=== PATIENT | female | born 1995 | race Caucasian/White ===

== ENCOUNTER 2021-01-31 14:36 | Emergency (ER) | payer OTHER ==
[2021-01-31 15:03] LABS: Absolute Neutrophil Ct (ANC) 9.54 (1.4-6.9); BASOPHIL % 0.1 % (0.0-0.4); Basophil (Absolute #) 0.02 (0-0.4); Eosinophil % 0.9 % (0.00-5.0); Eosinophil (Absolute #) 0.12 (0-0.5); Hematocrit 33.2 % (35-47); Lymphocyte (Absolute #) 2.78 (1.0-4.6); Lymphocytes % 20.6 % (24.0-44.0); Mean Cell Volume 89.5 fl (78-100); Mean Corpuscular Hemoglobin 29.6 pg (26-32); Mean Corpuscular Hgb Concent. 33.1 g/dl (32-36); Mean Platelet Volume 10.8 fl (7.5-11.0); Monocyte (Absolute #) 1.06 (0.0-1.3); Monocytes % 7.8 % (0.0-12.0); Neutrophil % 70.6 % (36.0-66.0); Platelet Count 215 K/mm3 (150-450); Red Blood Count 3.71 M/mm3 (4.1-5.4); Red Cell Distribution Width 12.7 % (11.5-14.0); White Blood Count 13.5 K/mm3 (4.0-10.5)
--- NOTE | 2021-01-31 15:03 | ERPHSYRPT ---
- History of Present Illness Time Seen by Provider: 01/31/21 14:40 Historian: patient Exam Limitations: no limitations Patient Subjective Stated Complaint: CP x 2 days Triage Nursing Assessment: pt to ED c/o CP x 2 days. dull in center of chest sonya t radiates to back. is 27 weeks . called OBGYN for CP sx today and was referred to ED for evaluation. no cardiac hx. heart sounds clear, lungs clear and equal bilaterally. rates 7/10. Physician History: Patient is a 25-year-old female presents to our ED as a referral from her OB for evaluation of of substernal chest pain. Chest pain has been ongoing for approximately 2 days. Chest pain tends to radiate to her back. Pain described as a dull ache. Patient denies a cardiac history. Pain rated 7 out of 10. No specific worsening or improving factors. Patient denies any symptomology regarding her . No vaginal discharge. No pelvic cramping. Symptoms are mild to moderate in intensity. No specific worsening improving factors. Patient voices no other complaints or concerns at this time. Patient admits that she is a current smoker. Timing/Duration: day(s) (2 days) Activities at Onset: none Quality: aching, dullness Location: substernal Chest Pain Radiation: back Severity of Pain-Max: moderate Severity of Pain-Current: mild Modifying Factors: Improves With: nothing Associated Symptoms: denies symptoms, No nausea, No vomiting, No palpitations, No cough, No diaphoresis, No fever, No weakness, No swelling/lump in chest, No rash, No dizziness Prior Chest Pain/Cardiac Workup: no prior chest pain Nitro Today/Relief: no nitro taken today Aspirin Treatment Today: no aspirin today Allergies/Adverse Reactions: codeine Allergy (Verified 01/31/21 14:50) Hives morphine Allergy (Verified 01/31/21 14:50) Hives promethazine HCl [From Phenergan] Allergy (Verified 01/31/21 14:50) Hives Home Medications: Buspirone HCl [Buspar] 10 mg PO DAILY 01/31/21 [History] Famotidine [Zantac-360 (Famotidine)] 10 mg PO DAILY PRN PRN 01/31/21 [History] Hydroxyzine HCl 25 mg [Atarax 25 mg] 25 mg PO DAILY PRN PRN 01/31/21 [History] Ondansetron HCl [Zofran] 4 mg PO Q6H PRN 01/31/21 [History] Vits W-Ca,Fe,FA(<1Mg) [] 1 each PO DAILY 01/31/21 [History] Hx Tetanus, Diphtheria Vaccination/Date Given: Yes (up to date) Hx Influenza Vaccination/Date Given: No Hx Pneumococcal Vaccination/Date Given: No Immunizations Up to Date: No Travel Risk - International Travel Have you traveled outside of the country in past 3 weeks: No - Coronavirus Screening Are you exhibiting any of the following symptoms?: No Close contact with a COVID-19 positive Pt in past 14-21 Days: No - Vaccine Status Have you recieved a Covid-19 vaccination: No - Review of Systems Constitutional: No Symptoms, No Fever, No Chills Eyes: No Symptoms Ears, Nose, & Throat: No Symptoms Respiratory: No Symptoms, No Cough, No Dyspnea Cardiac: No Symptoms, No Chest Pain, No Edema, No Syncope Abdominal/Gastrointestinal: No Symptoms, No Abdominal Pain, No Nausea, No Vomi ting, No Diarrhea Genitourinary Symptoms: No Symptoms, No Dysuria Musculoskeletal: No Symptoms, No Back Pain, No Neck Pain Skin: No Symptoms, No Rash Neurological: No Symptoms, No Dizziness, No Focal Weakness, No Sensory Changes Psychological: No Symptoms Endocrine: No Symptoms Hematologic/Lymphatic: No Symptoms Immunological/Allergic: No Symptoms All Other Systems: Reviewed and Negative - Past Medical History Pertinent Past Medical History: Yes Neurological History: No Pertinent History ENT History: No Pertinent History Cardiac History: No Pertinent History Respiratory History: No Pertinent History Endocrine Medical History: Hypoglycemia, Hypothyroidism Musculoskeletal History: No Pertinent History GI Medical History: No Pertinent History History: Other Psycho-Social History: Depression Female Reproductive Disorders: No Pertinent History Other Medical History: KIDNEY DISEASE. HYPOGLCEMIIA - Past Surgical History Past Surgical History: Yes Neuro Surgical History: No Pertinent History Cardiac: No Pertinent History Respiratory: No Pertinent History Gastrointestinal: No Pertinent History Genitourinary: Other Musculoskeletal: Orthopedic Surgery Female Surgical History: No Pertinent History Other Surgical History: KIDNEY BIOPSY. TONSILECTOMY. WISDOM TEETH REMOVED. CYST REMOVED ON WRIST - Social History Smoking Status: Current every day smoker How long have you smoked: 3 Exposure to second hand smoke: Yes Drug Use: none Patient Lives Alone: No - Female History Hx Now: Yes - Nursing Vital Signs Nursing Vital Signs: Initial Vital Signs Temperature 98.0 F 01/31/21 14:38 Pulse Rate 114 H 01/31/21 14:38 Respiratory Rate 18 01/31/21 14:38 Blood Pressure 117/79 01/31/21 14:38 O2 Sat by Pulse Oximetry 98 01/31/21 14:38 Pain Scale Pain Intensity 0 - Physical Exam General Appearance: no apparent distress, alert Eye Exam: PERRL/EOMI, eyes nml inspection Ears, Nose, Throat Exam: normal ENT inspection, TMs normal, pharynx normal, moist mucous membranes Neck Exam: normal inspection, non-tender, supple, full range of motion Respiratory Exam: normal breath sounds, lungs clear, airway intact, No respiratory distress Cardiovascular Exam: regular rate/rhythm, normal heart sounds, normal peripheral pulses, other (Chest pain reproduced with movement palpation and stretching of her chest.) Gastrointestinal/Abdomen Exam: soft, normal bowel sounds, other (Gravid abdomen heart tones are 160.), No tenderness, No mass Back Exam: normal inspection, No CVA tenderness, No vertebral tenderness Extremity Exam: normal inspection, normal range of motion Neurologic Exam: alert, oriented x 3, cooperative, normal mood/affect, sensation nml, No motor deficits Skin Exam: normal color, warm, dry Lymphatic Exam: adenopathy SpO2 Interpretation: normal SpO2: 98 O2 Delivery: Room Air - Course Nursing assessment & vital signs reviewed: Yes EKG Interpreted by Me: RATE ([id number]), Sinus Tach, NORMAL AXIS, NORMAL INTERVALS - Radiology Exams Chest X-ray Interpretation: Teleradiologist Report (Portable chest demonstrates normal heart lungs and bony thorax) - Radiology Ultrasound Exam Venous Lower Extremity Ultrasound: discussed w/radiologist (Per wallpaper printer helper ultrasound DVT negative bilateral lower extremity.) Ordered Tests: Active Orders 24 hr Category Date Time Status Ross Furnace Operator STAT Care 01/31/21 14:51 Active EKG-ER Only STAT Care 01/31/21 14:50 Active IV Insertion STAT Care 01/31/21 14:50 Active Pulse Oximetry (ED) STAT Care 01/31/21 14:50 Active CHEST 1 VIEW (PORTABLE) Stat Exams 01/31/21 14:51 Completed VENOUS BILATERAL EXTREMITY [US] Stat Exams 01/31/21 14:49 Completed CBC W DIFF Stat Lab 01/31/21 14:45 Completed CMP Stat Lab 01/31/21 14:45 Completed TROPONIN Q3H Lab 01/31/21 14:45 Completed TROPONIN Q3H Lab 01/31/21 16:49 Completed TROPONIN Q3H Lab 01/31/21 21:00 Ordered TROPONIN Q3H Lab 02/01/21 00:00 Ordered TROPONIN Q3H Lab 02/01/21 03:00 Ordered Urine Triage Profile Stat Lab 01/31/21 14:59 Completed Lab/Rad Data: Laboratory Result Diagrams 01/31/21 14:45 01/31/21 14:45 Laboratory Results 01/31/21 01/31/21 01/31/21 Range/Units 16:49 14:59 14:45 WBC (4.0-10.5) K/mm3 RBC (4.1-5.4) M/mm3 Hgb (12.0-16.0) gm/dl Hct (35-47) % MCV (78-100) fl MCH (26-32) pg MCHC (32-36) g/dl RDW (11.5-14.0) % Plt Count (150-450) K/mm3 MPV (7.5-11.0) fl Gran % (36.0-66.0) % Eos # (Auto) (0-0.5) Absolute Lymphs (auto) (1.0-4.6) Absolute Monos (auto) (0.0-1.3) Lymphocytes % (24.0-44.0) % Monocytes % (0.0-12.0) % Eosinophils % (0.00-5.0) % Basophils % (0.0-0.4) % Absolute Granulocytes (1.4-6.9) Basophils # (0-0.4) Sodium (137-145) mmol/L Potassium (3.5-5.1) mmol/L Chloride (98-107) mmol/L Carbon Dioxide (22-30) mmol/L Anion Gap (5-15) MEQ/L BUN (7-17) mg/dL Creatinine (0.52-1.04) mg/dL Estimated GFR ML/MIN Glucose (74-106) mg/dL Calcium (8.4-10.2) mg/dL Total Bilirubin (0.2-1.3) mg/dL AST (14-36) U/L ALT (0-35) U/L Alkaline Phosphatase (38-126) U/L Troponin I < 0.012 < 0.012 (0.000-0.034) ng/mL Serum Total Protein (6.3-8.2) g/dL Albumin (3.5-5.0) g/dL Urine Opiates Level NEGATIVE (NEGATIVE) Ur Methadone NEGATIVE (NEGATIVE) Urine Barbiturates NEGATIVE (NEGATIVE) Ur Phencyclidine (PCP) NEGATIVE (NEGATIVE) Urine Amphetamine NEGATIVE (NEGATIVE) U Benzodiazepine Level NEGATIVE (NEGATIVE) Urine Cocaine NEGATIVE (NEGATIVE) Urine Marijuana (THC) NEGATIVE (NEGATIVE) 01/31/21 01/31/21 Range/Units 14:45 14:45 WBC 13.5 H (4.0-10.5) K/mm3 RBC 3.71 L (4.1-5.4) M/mm3 Hgb 11.0 L (12.0-16.0) gm/dl Hct 33.2 L (35-47) % MCV 89.5 (78-100) fl MCH 29.6 (26-32) pg MCHC 33.1 (32-36) g/dl RDW 12.7 (11.5-14.0) % Plt Count 215 (150-450) K/mm3 MPV 10.8 (7.5-11.0) fl Gran % 70.6 H (36.0-66.0) % Eos # (Auto) 0.12 (0-0.5) Absolute Lymphs (auto) 2.78 (1.0-4.6) Absolute Monos (auto) 1.06 (0.0-1.3) Lymphocytes % 20.6 L (24.0-44.0) % Monocytes % 7.8 (0.0-12.0) % Eosinophils % 0.9 (0.00-5.0) % Basophils % 0.1 (0.0-0.4) % Absolute Granulocytes 9.54 H (1.4-6.9) Basophils # 0.02 (0-0.4) Sodium 132 L (137-145) mmol/L Potassium 3.7 (3.5-5.1) mmol/L Chloride 103 (98-107) mmol/L Carbon Dioxide 21 L (22-30) mmol/L Anion Gap 11.1 (5-15) MEQ/L BUN 8 (7-17) mg/dL Creatinine 0.50 L (0.52-1.04) mg/dL Estimated GFR > 60.0 ML/MIN Glucose 108 H (74-106) mg/dL Calcium 8.8 (8.4-10.2) mg/dL Total Bilirubin 0.50 (0.2-1.3) mg/dL AST 17 (14-36) U/L ALT 15 (0-35) U/L Alkaline Phosphatase 72 (38-126) U/L Troponin I (0.000-0.034) ng/mL Serum Total Protein 6.2 L (6.3-8.2) g/dL Albumin 3.3 L (3.5-5.0) g/dL Urine Opiates Level (NEGATIVE) Ur Methadone (NEGATIVE) Urine Barbiturates (NEGATIVE) Ur Phencyclidine (PCP) (NEGATIVE) Urine Amphetamine (NEGATIVE) U Benzodiazepine Level (NEGATIVE) Urine Cocaine (NEGATIVE) Urine Marijuana (THC) (NEGATIVE) - Progress Progress: improved Air Movement: good Progress Note: Patient reassessed. No chest pain at rest. Chest pain occurs with palpation to anterior chest wall and stretching of her chest wall by extending her arms. Work-up negative. Troponin negative x2. Ultrasound bilateral lower extremities are negative for DVT. Vitals are normal. Patient not tachycardic or hypoxic. EKG is normal sinus rhythm. Chest x-ray negative fear acute pathology. Patient states she is ready for discharge. No indication for further work-up at this time. Case discussed with Dr. Ray, patient's referring OB. No further recommendations made at this time. Patient agrees to follow-up with her primary care doctor within 48 hours for reevaluation. She voices no other complaints or concerns at this time. Patient has no complaints or involvement of her pelvis vaginal area or any complaints regarding her . heart tones were 160. Portions of this note were created with voice recognition technology. There may be grammatical, spelling, punctuation or sound alike errors 01/31/21 18:00 Blood Culture(s) Obtained: No Antibiotics given: No Discussed with DrAlexsandra: Francine Will see patient in: office Counseled pt/family regarding: lab results, diagnosis, rad results - Departure Departure Disposition: Home Clinical Impression: Chest wall muscle strain, Chest pain Condition: Stable Critical Care Time: No Referrals: MICHELLE CURRIE, FILTERS ASSEMBLER [Primary Care Provider] - Follow up/PCP as directed Additional Instructions: Discharge/Care Plan WILBUR BATRES was seen on 01/31/21 in the Emergency Room. The patient was counseled regarding Diagnosis,Lab results, Imaging studies, need for follow up and when to return to the Emergency Room. Prescriptions given: Discharge Note I have spoken with the patient and/or caregivers. I have explained the patient's condition, diagnosis and treatment plan based on the information available to me at this time. I have answered the patient's and/or caregiver's questions and addressed any concerns. The patient and/or caregivers have as good understanding of the patient's diagnosis, condition and treatment plan as can be expected at this point. The vital signs have been stable. The patient's condition is stable and appropriate for discharge from the emergency department. The patient will pursue further outpatient evaluation with the primary care physician or other designated or consulting physician as outlined in the discharge instructions. The patient and/or caregivers are agreeable to this plan of care and follow-up instructions have been explained in detail. The patient and/or caregivers have received these instruction. The patient/and or caregivers are aware that any significant change in condition or worsening of symptoms should prompt an immediate return to this or the closest emergency department or call 911.
[2021-01-31 15:09] LABS: ALBUMIN 3.3 g/dL (3.5-5.0); ALKALINE PHOSPHATASE 72 U/L (38-126); ANION GAP 11.1 MEQ/L (5-15); BLOOD UREA NITROGEN 8 mg/dL (7-17); CHLORIDE 103 mmol/L (98-107); Calcium 8.8 mg/dL (8.4-10.2); Carbon Dioxide 21 mmol/L (22-30); EST GLOMERULAR FILTRATION RATE > 60.0 ML/MIN; Glucose 108 mg/dL (74-106); Potassium 3.7 mmol/L (3.5-5.1); SGOT/AST 17 U/L (14-36); SGPT/ALT 15 U/L (0-35); SODIUM 132 mmol/L (137-145); Total Protein 6.2 g/dL (6.3-8.2)
--- NOTE | 2021-01-31 15:13 | XRAY ---
Indication: Chest pain. 27 weeks . Comparison: None Portable chest demonstrates normal heart, lungs, and bony thorax.
[2021-01-31 15:35] LABS: Amphetamine,Urine NEGATIVE (NEGATIVE); Barbiturate,Urine NEGATIVE (NEGATIVE); Benzodiazepine,Urine NEGATIVE (NEGATIVE); Cocaine,Urine NEGATIVE (NEGATIVE); Methadone,Urine NEGATIVE (NEGATIVE); Opiate,Urine NEGATIVE (NEGATIVE); PCP,Urine NEGATIVE (NEGATIVE); THC,Urine NEGATIVE (NEGATIVE)
--- NOTE | 2021-01-31 16:25 | XRAY ---
Indication: Chest pain. 2-dimensional sonogram and color Doppler imaging of the major venous vessels of the left and right leg performed. Comparison: None No thrombus seen in the examined deep venous vessels of the left and right leg including greater saphenous vein. Veins demonstrate normal compressibility. Venous waveforms are normal with and without augmentation. Impression: Left and right legs negative for DVT.
== END 2021-01-31 18:10 | disposition home or self-care (01) ==
LOC: ED 14:36
DX: S29.011A Strain of muscle and tendon of front wall of thorax, initial encounter (principal); R07.9 Chest pain, unspecified; Z72.0 Tobacco use; Z33.1 Pregnant state, incidental
CPT/HCPCS: 36000; 36415; 71045; 80053; 80307; 84484; 85025; 93005; 93041; 93970; 94760; 99284

== ENCOUNTER 2021-02-11 23:11 | Emergency (ER) | payer OTHER ==
[2021-02-11 23:49] VITALS: O2SAT 97
--- NOTE | 2021-02-12 00:17 | ERPHSYRPT ---
- History of Present Illness Time Seen by Provider: 02/11/21 23:50 Source: patient Exam Limitations: no limitations Patient Subjective Stated Complaint: Patient c/o body aches and right sided flank pain that started night. She states she has developed fatigue, chills, SOB with minimal exertion, nausea, and elevated temperature over the past 24 hours. Patient denies cough, vomiting, diarrhea. States she has a decreased since of taste and smell. Triage Nursing Assessment: Patient ambulated back to ED without difficultes. She is alert and oriented and answers questions appropriately. No cough noted during assessment. Lungs clear but diminished. Apical HR regular. Able to BHATTI WNL. 02 sats 97% on room air. Physician History: Patient is a 25-year-old female at 28 weeks gestation who presents with complaint of becoming ill last or 4 days ago she started initially with congestion and back pain. She then on Friday began to feel generally bad with nasal congestion cough fever. Her parents have been ill her father has been swabbed for Covid and is awaiting results. Her mother has not been tested. She has a 6-year-old son who is also not been tested Timing/Duration: day(s) (4) Cough Quality/Degree: dry cough Possible Cause: no prior episodes Associated Symptoms: fever, chest pain/soreness, cough, headache, muscle aches, nasal congestion, nasal drainage, shortness of breath Allergies/Adverse Reactions: codeine Allergy (Verified 02/11/21 23:34) Hives morphine Allergy (Verified 02/11/21 23:34) Hives promethazine HCl [From Phenergan] Allergy (Verified 02/11/21 23:34) Hives Home Medications: Buspirone HCl [Buspar] 10 mg PO DAILY 01/31/21 [History] Famotidine [Zantac-360 (Famotidine)] 10 mg PO DAILY PRN PRN 01/31/21 [History] Hydroxyzine HCl 25 mg [Atarax 25 mg] 25 mg PO DAILY PRN PRN 01/31/21 [History] Ondansetron HCl [Zofran] 4 mg PO Q6H PRN 01/31/21 [History] Vits W-Ca,Fe,FA(<1Mg) [] 1 each PO DAILY 01/31/21 [History] Polyethylene Glycol 3350 17 gm [Miralax Powder 17GM PACKET] 17 gm PO DAILY PRN 02/11/21 [History] Hx Tetanus, Diphtheria Vaccination/Date Given: Yes (up to date) Hx Influenza Vaccination/Date Given: No Hx Pneumococcal Vaccination/Date Given: No Immunizations Up to Date: Yes Travel Risk - International Travel Have you traveled outside of the country in past 3 weeks: No - Coronavirus Screening Are you exhibiting any of the following symptoms?: Yes Symptoms: Shortness of Breath, Headaches/Body Aches/Fatigue - Vaccine Status Have you recieved a Covid-19 vaccination: No - Review of Systems Constitutional: Fever, Fatigue, Lethargy, Malaise, No Chills Eyes: No Symptoms Ears, Nose, & Throat: Nose Congestion, Nose Discharge, Sinus Drainage Respiratory: Cough, Dyspnea Cardiac: Chest Pain, No Edema, No Syncope Abdominal/Gastrointestinal: No Abdominal Pain, No Nausea, No Vomiting, No Diarrhea Genitourinary Symptoms: No Dysuria Musculoskeletal: Arthralgias, Back Pain, Myalgias, No Neck Pain Skin: No Symptoms, No Rash Neurological: Headache, No Dizziness, No Focal Weakness, No Sensory Changes Psychological: No Symptoms Endocrine: No Symptoms All Other Systems: Reviewed and Negative - Past Medical History Pertinent Past Medical History: Yes Neurological History: No Pertinent History ENT History: No Pertinent History Cardiac History: No Pertinent History Respiratory History: No Pertinent History Endocrine Medical History: Hypoglycemia, Hypothyroidism Musculoskeletal History: No Pertinent History GI Medical History: No Pertinent History History: Other Psycho-Social History: Depression Female Reproductive Disorders: No Pertinent History Other Medical History: KIDNEY DISEASE. HYPOGLCEMIIA - Past Surgical History Past Surgical History: Yes Neuro Surgical History: No Pertinent History Cardiac: No Pertinent History Respiratory: No Pertinent History Gastrointestinal: No Pertinent History Genitourinary: Other Musculoskeletal: Orthopedic Surgery Female Surgical History: No Pertinent History Other Surgical History: KIDNEY BIOPSY. TONSILECTOMY. WISDOM TEETH REMOVED. CYST REMOVED ON WRIST - Social History Smoking Status: Current every day smoker How long have you smoked: 3 Exposure to second hand smoke: Yes Drug Use: none Patient Lives Alone: No - Female History Hx Now: Yes Gestational Age: 28 weeks - Nursing Vital Signs Nursing Vital Signs: Initial Vital Signs Temperature 99.1 F 11/28/21 23:37 Pulse Rate 125 H 02/11/21 23:37 Respiratory Rate 24 02/11/21 23:37 Blood Pressure 131/66 02/11/21 23:37 O2 Sat by Pulse Oximetry 97 02/11/21 23:37 Pain Scale Pain Intensity 8 - Physical Exam General Appearance: mild distress, alert Eye Exam: PERRL/EOMI, eyes nml inspection Ears, Nose, Throat Exam: normal ENT inspection, TMs normal, pharynx normal, mois t mucous membranes Neck Exam: normal inspection, non-tender, supple, full range of motion Respiratory Exam: respiratory distress Cardiovascular Exam: regular rate/rhythm, normal heart sounds Gastrointestinal/Abdomen Exam: soft, No tenderness Back Exam: normal inspection, No CVA tenderness, No vertebral tenderness Extremity Exam: normal inspection, normal range of motion Neurologic Exam: alert, oriented x 3, cooperative, normal mood/affect, sensation nml, No motor deficits Skin Exam: normal color, warm, dry, No rash Lymphatic Exam: No adenopathy SpO2: 97 Ordered Tests: Active Orders 24 hr Category Date Time Status CBC W DIFF Stat Lab 02/12/21 00:30 Completed CMP Stat Lab 02/12/21 00:30 Completed CULTURE,URINE Stat Lab 02/12/21 00:11 Received Lactic Acid Stat Lab 02/12/21 00:40 Completed UA W/RFX UR CULTURE Stat Lab 02/12/21 00:11 Completed Lab/Rad Data: Laboratory Result Diagrams 02/12/21 00:30 02/12/21 00:30 Laboratory Results 02/12/21 02/12/21 02/12/21 Range/Units 00:40 00:30 00:30 WBC (4.0-10.5) K/mm3 RBC (4.1-5.4) M/mm3 Hgb (12.0-16.0) gm/dl Hct (35-47) % MCV (78-100) fl MCH (26-32) pg MCHC (32-36) g/dl RDW (11.5-14.0) % Plt Count (150-450) K/mm3 MPV (7.5-11.0) fl Gran % (36.0-66.0) % Eos # (Auto) (0-0.5) Absolute Lymphs (auto) (1.0-4.6) Absolute Monos (auto) (0.0-1.3) Lymphocytes % (24.0-44.0) % Monocytes % (0.0-12.0) % Eosinophils % (0.00-5.0) % Basophils % (0.0-0.4) % Absolute Granulocytes (1.4-6.9) Basophils # (0-0.4) Sodium 131 L (137-145) mmol/L Potassium 3.7 (3.5-5.1) mmol/L Chloride 104 (98-107) mmol/L Carbon Dioxide 23 (22-30) mmol/L Anion Gap 8.0 (5-15) MEQ/L BUN 5 L (7-17) mg/dL Creatinine 0.50 L (0.52-1.04) mg/dL Estimated GFR > 60.0 ML/MIN Glucose 89 (74-106) mg/dL Lactic Acid 0.8 (0.4-2.0) Calcium 8.4 (8.4-10.2) mg/dL Total Bilirubin 0.30 (0.2-1.3) mg/dL AST 23 (14-36) U/L ALT 15 (0-35) U/L Alkaline Phosphatase 83 (38-126) U/L Serum Total Protein 5.3 L (6.3-8.2) g/dL Albumin 2.9 L (3.5-5.0) g/dL Urine Color (YELLOW) Urine Appearance (CLEAR) Urine pH (5-6) Ur Specific Fowler (1.005-1.025) Urine Protein (Negative) Urine Ketones (NEGATIVE) Urine Blood (0-5) Ruben/ul Urine Nitrite (NEGATIVE) Urine Bilirubin (NEGATIVE) Urine Urobilinogen (0-1) mg/dL Ur Leukocyte Esterase (NEGATIVE) Urine WBC (Auto) (0-5) /HPF Urine RBC (Auto) (0-2) /HPF U Epithel Cells (Auto) (FEW) /HPF Urine Bacteria (Auto) (NEGATIVE) /HPF Urine Culture Reflexed (NO) Urine Glucose (NEGATIVE) mg/dL Influenza Type A Ag NEGATIVE (NEGATIVE) Influenza Type B Ag NEGATIVE (NEGATIVE) RSV (PCR) NEGATIVE (Negative) SARS-CoV-2 (PCR) POSITIVE A (NEGATIVE) 02/12/21 02/12/21 Range/Units 00:30 00:11 WBC 7.1 (4.0-10.5) K/mm3 RBC 3.31 L (4.1-5.4) M/mm3 Hgb 9.7 L (12.0-16.0) gm/dl Hct 29.9 L (35-47) % MCV 90.3 (78-100) fl MCH 29.3 (26-32) pg MCHC 32.4 (32-36) g/dl RDW 12.5 (11.5-14.0) % Plt Count 155 (150-450) K/mm3 MPV 10.8 (7.5-11.0) fl Gran % 74.7 H (36.0-66.0) % Eos # (Auto) 0.02 (0-0.5) Absolute Lymphs (auto) 0.70 L (1.0-4.6) Absolute Monos (auto) 1.03 (0.0-1.3) Lymphocytes % 9.9 L (24.0-44.0) % Monocytes % 14.5 H (0.0-12.0) % Eosinophils % 0.3 (0.00-5.0) % Basophils % 0.6 (0.0-0.4) % Absolute Granulocytes 5.29 (1.4-6.9) Basophils # 0.04 (0-0.4) Sodium (137-145) mmol/L Potassium (3.5-5.1) mmol/L Chloride (98-107) mmol/L Carbon Dioxide (22-30) mmol/L Anion Gap (5-15) MEQ/L BUN (7-17) mg/dL Creatinine (0.52-1.04) mg/dL Estimated GFR ML/MIN Glucose (74-106) mg/dL Lactic Acid (0.4-2.0) Calcium (8.4-10.2) mg/dL Total Bilirubin (0.2-1.3) mg/dL AST (14-36) U/L ALT (0-35) U/L Alkaline Phosphatase (38-126) U/L Serum Total Protein (6.3-8.2) g/dL Albumin (3.5-5.0) g/dL Urine Color STRAW (YELLOW) Urine Appearance CLEAR (CLEAR) Urine pH 8.0 (5-6) Ur Specific Fowler 1.003 (1.005-1.025) Urine Protein 30 (Negative) Urine Ketones NEGATIVE (NEGATIVE) Urine Blood LARGE (0-5) Ruben/ul Urine Nitrite NEGATIVE (NEGATIVE) Urine Bilirubin NEGATIVE (NEGATIVE) Urine Urobilinogen NEGATIVE (0-1) mg/dL Ur Leukocyte Esterase NEGATIVE (NEGATIVE) Urine WBC (Auto) 0-2 (0-5) /HPF Urine RBC (Auto) 16-25 (0-2) /HPF U Epithel Cells (Auto) NONE (FEW) /HPF Urine Bacteria (Auto) NONE SEEN (NEGATIVE) /HPF Urine Culture Reflexed YES (NO) Urine Glucose NEGATIVE (NEGATIVE) mg/dL Influenza Type A Ag (NEGATIVE) Influenza Type B Ag (NEGATIVE) RSV (PCR) (Negative) SARS-CoV-2 (PCR) (NEGATIVE) - Progress Progress: unchanged Air Movement: good Blood Culture(s) Obtained: No Antibiotics given: No Discussed with : Francine (Dr. Ray was informed of the positive Covid test) - Departure Departure Disposition: Home Clinical Impression: COVID-19 affecting in third trimester Condition: Stable Critical Care Time: No Referrals: MICHELLE CURRIE NP [Primary Care Provider] - Follow up/PCP as directed Instructions: Coronavirus Disease 2019 (COVID-19) (DC) Additional Instructions: Patient was told that she will be discharged since her oxygenation is good. She is to await a call from the infusion center as to what time later today she will get her monoclonal antibody infusion.
[2021-02-12 00:34] LABS: Absolute Neutrophil Ct (ANC) 5.29 (1.4-6.9); BASOPHIL % 0.6 % (0.0-0.4); Basophil (Absolute #) 0.04 (0-0.4); Eosinophil % 0.3 % (0.00-5.0); Eosinophil (Absolute #) 0.02 (0-0.5); Hematocrit 29.9 % (35-47); Hemoglobin 9.7 gm/dl (12.0-16.0); Lymphocytes % 9.9 % (24.0-44.0); Mean Cell Volume 90.3 fl (78-100); Mean Corpuscular Hemoglobin 29.3 pg (26-32); Mean Corpuscular Hgb Concent. 32.4 g/dl (32-36); Mean Platelet Volume 10.8 fl (7.5-11.0); Monocyte (Absolute #) 1.03 (0.0-1.3); Monocytes % 14.5 % (0.0-12.0); Neutrophil % 74.7 % (36.0-66.0); Platelet Count 155 K/mm3 (150-450); Red Blood Count 3.31 M/mm3 (4.1-5.4); Red Cell Distribution Width 12.5 % (11.5-14.0); White Blood Count 7.1 K/mm3 (4.0-10.5)
[2021-02-12 00:44] LABS: Appearance CLEAR (CLEAR); Bilirubin NEGATIVE (NEGATIVE); Blood LARGE Ery/ul (0-5); Glucose NEGATIVE (NEGATIVE); Ketones NEGATIVE (NEGATIVE); Leukocyte Esterase NEGATIVE (NEGATIVE); Nitrite NEGATIVE (NEGATIVE); Protein,Urine Dip 30 (Negative); Specific Gravity 1.003 (1.005-1.025); Urobilinogen NEGATIVE mg/dL (0-1); WBC 0-2 /HPF (0-5)
[2021-02-12 00:49] LABS: Bacteria NONE SEEN /HPF (NEGATIVE)
[2021-02-12 00:49] LABS: ALBUMIN 2.9 g/dL (3.5-5.0); ALKALINE PHOSPHATASE 83 U/L (38-126); BLOOD UREA NITROGEN 5 mg/dL (7-17); CHLORIDE 104 mmol/L (98-107); Calcium 8.4 mg/dL (8.4-10.2); Carbon Dioxide 23 mmol/L (22-30); EST GLOMERULAR FILTRATION RATE > 60.0 ML/MIN; Glucose 89 mg/dL (74-106); Potassium 3.7 mmol/L (3.5-5.1); SGOT/AST 23 U/L (14-36); SGPT/ALT 15 U/L (0-35); SODIUM 131 mmol/L (137-145); Total Protein 5.3 g/dL (6.3-8.2)
[2021-02-12 01:10] LABS: INFLUENZA A NEGATIVE (NEGATIVE); INFLUENZA B NEGATIVE (NEGATIVE); RESPIRATORY SYNCTIAL VIRUS NEGATIVE (Negative)
[2021-02-12 01:14] LABS: SARS-CoV-2 Xpert Express POSITIVE (NEGATIVE)
[2021-02-12 01:37] VITALS: BP 131/66; PULSE 94
== END 2021-02-12 01:54 | disposition home or self-care (01) ==
LOC: ED 23:11
DX: O98.52 Other viral diseases complicating childbirth (principal); U07.1 COVID-19; Z3A.28 28 weeks gestation of pregnancy; Z79.899 Other long term (current) drug therapy
CPT/HCPCS: 0241U; 36415; 80053; 81001; 83605; 85025; 87086; 99283

== ENCOUNTER 2021-02-13 11:24 | Observation (INO) | payer OTHER ==
[2021-02-13 12:13] VITALS: PULSE 114
[2021-02-13] MEDS ORDERED: VENTOLIN COMMON CANISTER IH PRN (12:30)
[2021-02-13] MEDS ORDERED: REGEN-COV 600-600 MG/10ML(EUA) 10 ML in Sodium Chloride 0.9% 100 ML BAG 100 ML IV ONE (12:30)
[2021-02-13] MEDS ORDERED: Epipen 0.3 MG SQ PRN (12:30)
[2021-02-13] MEDS ORDERED: Pepcid 20 MG VIAL IV PRN (12:30)
[2021-02-13] MEDS ORDERED: Sodium Chloride 0.9% 1000 ML 1,000 ML IV PRN (12:30)
[2021-02-13] MEDS ORDERED: solu-CORTEF 100MG IV PRN (12:30)
[2021-02-13] MEDS ORDERED: TYLENOL 325 MG PO PRN (12:30)
[2021-02-13] MEDS ORDERED: BENADRYL 50 MG/ML IV PRN (12:30)
[2021-02-13 14:01] VITALS: BP 132/65; O2SAT 98
== END 2021-02-13 14:30 | disposition home or self-care (01) ==
LOC: ICU 11:41 → UNDOADMOB 11:41 → UNDODISOB 14:30
PROVIDERS: ADMIT Obstetrics & Gynecology; ATTEND Obstetrics & Gynecology
DX: O98.513 Other viral diseases complicating pregnancy, third trimester (principal); U07.1 COVID-19; Z3A.28 28 weeks gestation of pregnancy
CPT/HCPCS: Q0243

== ENCOUNTER 2021-03-28 13:53 | Observation (INO) | payer OTHER ==
[2021-03-28 15:35] VITALS: BP 117/68; PULSE 111
== END 2021-03-28 15:55 | disposition home or self-care (01) ==
LOC: WHC 13:53 → OB 14:43
PROVIDERS: ADMIT Obstetrics & Gynecology; ATTEND Obstetrics & Gynecology
DX: Z34.83 Encounter for supervision of other normal pregnancy, third trimester (principal); Z3A.34 34 weeks gestation of pregnancy
CPT/HCPCS: 59025; 59426; 87081; 87255; G0378; 81002; 99213

== ENCOUNTER 2021-04-04 11:16 | Observation (INO) | payer MEDICAID, OTHER ==
[2021-04-04 12:55] VITALS: BP 130/58; PULSE 110
== END 2021-04-04 12:57 | disposition home or self-care (01) ==
LOC: WHC 11:16 → OB 11:50
PROVIDERS: ADMIT Obstetrics & Gynecology; ATTEND Obstetrics & Gynecology
DX: Z34.83 Encounter for supervision of other normal pregnancy, third trimester (principal); Z3A.35 35 weeks gestation of pregnancy
CPT/HCPCS: 59025; 59426; 81002; G0378

== ENCOUNTER 2021-04-07 11:10 | Observation (INO) | payer MEDICAID ==
[2021-04-07 13:03] VITALS: BP 129/67; PULSE 109; O2SAT 98
== END 2021-04-07 12:30 | disposition home or self-care (01) ==
LOC: UNDOADMOB 11:10 → MED SURG 11:10 → UNDODISOB 12:30
PROVIDERS: ADMIT Obstetrics & Gynecology; ATTEND Obstetrics & Gynecology
DX: O12.13 Gestational proteinuria, third trimester (principal); Z3A.36 36 weeks gestation of pregnancy
CPT/HCPCS: 59025; G0378

== ENCOUNTER 2021-04-11 10:53 | Observation (INO) | payer MEDICAID ==
[2021-04-11 12:38] VITALS: BP 133/59; PULSE 111; O2SAT 98
== END 2021-04-11 12:35 | disposition home or self-care (01) ==
LOC: WHC 10:53 → OB 11:28
PROVIDERS: ADMIT Obstetrics & Gynecology; ATTEND Obstetrics & Gynecology
DX: Z34.83 Encounter for supervision of other normal pregnancy, third trimester (principal); Z3A.36 36 weeks gestation of pregnancy
CPT/HCPCS: 59025; 59426; 87086; G0378; 81002

== ENCOUNTER 2021-04-14 12:20 | Observation (INO) | payer MEDICAID ==
[2021-04-14 13:18] VITALS: BP 134/83; PULSE 107
== END 2021-04-14 13:10 | disposition home or self-care (01) ==
LOC: OB 12:20
PROVIDERS: ADMIT Obstetrics & Gynecology; ATTEND Obstetrics & Gynecology
DX: Z34.83 Encounter for supervision of other normal pregnancy, third trimester (principal); Z3A.37 37 weeks gestation of pregnancy; Z20.828 Contact with and (suspected) exposure to other viral communicable diseases
CPT/HCPCS: 59025; G0378

== ENCOUNTER 2021-04-16 05:46 | Inpatient (IN) | payer MEDICAID ==
[2021-04-16] MEDS ORDERED: PITOCIN 30 UNITS/ LR 500 ML 30 UNITS/500 ML PLAST..BAG IV SCH ×2 (06:30)
[2021-04-16 08:47] LABS: Absolute Neutrophil Ct (ANC) 8.13 (1.4-6.9); Basophil (Absolute #) 0.04 (0-0.4); Eosinophil % 0.6 % (0.00-5.0); Eosinophil (Absolute #) 0.08 (0-0.5); Hematocrit 32.1 % (35-47); Hemoglobin 10.8 gm/dl (12.0-16.0); Lymphocyte (Absolute #) 3.11 (1.0-4.6); Lymphocytes % 24.9 % (24.0-44.0); Mean Cell Volume 88.2 fl (78-100); Mean Corpuscular Hemoglobin 29.7 pg (26-32); Mean Corpuscular Hgb Concent. 33.6 g/dl (32-36); Mean Platelet Volume 10.2 fl (7.5-11.0); Monocyte (Absolute #) 1.11 (0.0-1.3); Monocytes % 8.9 % (0.0-12.0); Neutrophil % 65.3 % (36.0-66.0); Platelet Count 277 K/mm3 (150-450); Red Blood Count 3.64 M/mm3 (4.1-5.4); Red Cell Distribution Width 12.9 % (11.5-14.0); White Blood Count 12.5 K/mm3 (4.0-10.5)
[2021-04-16] MEDS: NON-FORMULARY ITEM PO SCH ×2 (10:21→21:47)
[2021-04-16] MEDS ORDERED: XYLOCAINE 1% HCL 20 ML MDV ONE (15:33)
[2021-04-16] MEDS ORDERED: CORTISONE 1% CREAM TP PRN (16:51)
[2021-04-16] MEDS ORDERED: Lactated Ringers 1,000 ML IV ONE (16:51)
[2021-04-16] MEDS ORDERED: Mylicon 80MG PO PRN (16:51)
[2021-04-16] MEDS ORDERED: LANSINOH 40 GM TOP PRN (16:51)
[2021-04-16] MEDS ORDERED: FENTANYL 2 MCG-BUPIV 0.125%-NS 250 ML Epidur 250 ML EPIDURAL SCH (17:00)
[2021-04-16] MEDS ORDERED: XYLOCAINE 1% HCL 20 ML MDV IJ PRN (17:24)
[2021-04-16] MEDS: Dermoplast Spray TP PRN (17:45)
[2021-04-16] MEDS: MOTRIN 400 MG PO PRN ×2 (17:46→23:58)
[2021-04-16] MEDS: TUCKS TP PRN (17:46)
[2021-04-16 18:48] LABS: Amphetamine,Urine NEGATIVE (NEGATIVE); Barbiturate,Urine NEGATIVE (NEGATIVE); Benzodiazepine,Urine NEGATIVE (NEGATIVE); Cocaine,Urine NEGATIVE (NEGATIVE); Methadone,Urine NEGATIVE (NEGATIVE); Opiate,Urine NEGATIVE (NEGATIVE); PCP,Urine NEGATIVE (NEGATIVE); THC,Urine NEGATIVE (NEGATIVE)
[2021-04-16] MEDS ORDERED: Adacel Vial IM ONE (20:00)
[2021-04-16] MEDS: Lactated Ringers 1,000 ML IV SCH ×2 (21:42→21:43)
[2021-04-16] MEDS: Colace 100 MG PO SCH (21:46)
[2021-04-16] MEDS: TYLENOL EXTRA STRENGTH 500 MG PO PRN (21:46)
[2021-04-16 22:54] VITALS: O2SAT 98
[2021-04-17 05:17] LABS: Absolute Neutrophil Ct (ANC) 8.43 (1.4-6.9); Basophil (Absolute #) 0.03 (0-0.4); Eosinophil % 0.9 % (0.00-5.0); Eosinophil (Absolute #) 0.12 (0-0.5); Hematocrit 29.5 % (35-47); Hemoglobin 9.8 gm/dl (12.0-16.0); Lymphocyte (Absolute #) 3.92 (1.0-4.6); Lymphocytes % 28.2 % (24.0-44.0); Mean Cell Volume 89.4 fl (78-100); Mean Corpuscular Hemoglobin 29.7 pg (26-32); Mean Corpuscular Hgb Concent. 33.2 g/dl (32-36); Mean Platelet Volume 10.2 fl (7.5-11.0); Monocyte (Absolute #) 1.42 (0.0-1.3); Monocytes % 10.2 % (0.0-12.0); Neutrophil % 60.5 % (36.0-66.0); Platelet Count 241 K/mm3 (150-450); Red Cell Distribution Width 12.8 % (11.5-14.0); White Blood Count 13.9 K/mm3 (4.0-10.5)
[2021-04-17] MEDS: TYLENOL EXTRA STRENGTH 500 MG PO PRN ×2 (06:51→12:26)
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
[2021-04-17] MEDS ORDERED: FERREX 150 PO SCH (10:00)
[2021-04-17] MEDS: Colace 100 MG PO SCH (10:21)
[2021-04-17 10:38] LABS: HBsAg Screen Negative (Negative)
[2021-04-17 14:30] VITALS: BP 131/62; PULSE 119
[2021-04-17] MEDS: TUCKS TP PRN (16:41)
[2021-04-17] MEDS: Dermoplast Spray TP PRN (16:41)
[2021-04-17] MEDS: MOTRIN 400 MG PO PRN (16:42)
[2021-04-17] MEDS: NON-FORMULARY ITEM PO SCH (19:12)
== END 2021-04-17 18:00 | disposition home or self-care (01) | DRG 806 ==
LOC: OB 06:08 → OBSVTOIN 14:50 → OB 14:50
PROVIDERS: ADMIT Obstetrics & Gynecology; ATTEND Obstetrics & Gynecology
PROC: 10E0XZZ Delivery of Products of Conception, External Approach (ICD-10-PCS; principal; 2021-04-16)
PROC: 0KQM0ZZ Repair Perineum Muscle, Open Approach (ICD-10-PCS; 2021-04-16)
DX: O70.1 Second degree perineal laceration during delivery (principal); N04.5 Nephrotic syndrome with diffuse mesangiocapillary glomerulonephritis; Z37.0 Single live birth; Z3A.37 37 weeks gestation of pregnancy
CPT/HCPCS: 0241U; 36415; 59025; 80307; 85025; 86850; 86900; 86901; 87340; 90471; 90715; 94799; G0378; J2590; A9270-GY

== ENCOUNTER 2022-02-20 12:15 | Emergency (ER) | payer BC, OTHER ==
[2022-02-20 13:05] LABS: Absolute Neutrophil Ct (ANC) 7.33 x10^3/uL (1.4-6.9); Basophil (Absolute #) 0.03 x10^3/uL (0-0.4); Eosinophil % 0.9 % (0.00-5.0); Eosinophil (Absolute #) 0.09 x10^3/uL (0-0.5); Hematocrit 34.6 % (35-47); Hemoglobin 11.6 g/dL (12.0-16.0); Lymphocyte (Absolute #) 2.41 x10^3/uL (1.0-4.6); Mean Cell Volume 87.6 fL (78-100); Mean Corpuscular Hemoglobin 29.4 pg (26-32); Mean Corpuscular Hgb Concent. 33.5 g/dL (32-36); Mean Platelet Volume 10.3 fL (7.5-11.0); Monocyte (Absolute #) 0.61 x10^3/uL (0.0-1.3); Monocytes % 5.8 % (0.0-12.0); Neutrophil % 69.8 % (36.0-66.0); Platelet Count 219 x10^3/uL (150-450); Red Blood Count 3.95 x10^6/uL (4.1-5.4); Red Cell Distribution Width 12.4 % (11.5-14.0); White Blood Count 10.5 x10^3/uL (4.0-10.5)
[2022-02-20 13:20] LABS: ALBUMIN 3.4 g/dL (3.5-5.0); ALKALINE PHOSPHATASE 65 U/L (38-126); AMYLASE 62 U/L (30-110); ANION GAP 9.2 MEQ/L (5-15); BLOOD UREA NITROGEN 5 mg/dL (7-17); CHLORIDE 103 mmol/L (98-107); Calcium 8.5 mg/dL (8.4-10.2); Carbon Dioxide 24 mmol/L (22-30); Creatinine 1 0.42 mg/dL (0.52-1.04); EST GLOMERULAR FILTRATION RATE > 60.0 ML/MIN; Glucose 83 mg/dL (74-106); LIPASE 28 U/L (23-300); Potassium 4.1 mmol/L (3.5-5.1); SGOT/AST 16 U/L (14-36); SGPT/ALT 11 U/L (0-35); SODIUM 132 mmol/L (137-145); Total Protein 6.6 g/dL (6.3-8.2)
--- NOTE | 2022-02-20 13:25 | XRAY ---
Indication: Left upper quadrant pain. Two-dimensional left upper quadrant abdominal sonogram performed. Comparison: None Spleen is homogeneous in echogenicity without splenomegaly or free fluid. Visualized left kidney is sonographically normal measuring 12.1 cm in length. Impression: Negative left upper quadrant sonogram.
[2022-02-20] MEDS ORDERED: TYLENOL 325 MG PO STA (13:34)
[2022-02-20] MEDS ORDERED: TYLENOL 325 MG ONE (13:35)
--- NOTE | 2022-02-20 14:02 | ERPHSYRPT ---
- History of Present Illness Time Seen by Provider: 02/20/22 12:25 Historian: patient Exam Limitations: no limitations Patient Subjective Stated Complaint: " I've been having left sided abdominal pains since last night before dinner and it radiates to my left chest, I'm 21 weeks ." Triage Nursing Assessment: Pt presents to ER with complaints of LUQ abdominal pain since last night prior to eating dinner, complains of nausea and vomited o nce. Pt is 21 weeks and was cleared by [facility] OB dept prior to ER arrival. Pt is alert and oriented x 3. Skin is pink, warm, and dry. Respirations are unlabored and easy. Lungs clear. Abdomen is soft but pt complains of 6/10 LUQ abd aching pains that are constant and intermittent radiate to left shoulder. This is pts 3rd , last time giving 10 months ago. Denies any trouble urinating, states has white discharge but that is "normal" for her. Also states has headache, but frequently has headaches. Physician History: Patient is a 26-year-old 3 para 2 female at 21 weeks gestation who presents with a complaint of left upper quadrant pain which radiates up into the chest. She does not complain of any shortness of breath no palpitations alth ough the pain is somewhat pleuritic in nature. She is considered high risk because she does spill a lot of protein in her urine and is followed by high risk in [facility]. Her local penciller is Dr. Ray. Timing/Duration: yesterday (The pain started during dinner last night.) Activities at Onset: none Quality: aching Abdominal Pain Onset Location: LUQ Pain Radiation: chest Severity of Pain-Max: moderate Severity of Pain-Current: mild Modifying Factors: Improves With: nothing Associated Symptoms: headache Previous symptoms: no prior history Allergies/Adverse Reactions: codeine Allergy (Verified 02/20/22 12:30) Hives morphine Allergy (Verified 02/20/22 12:30) Hives promethazine HCl [From Phenergan] Allergy (Verified 02/20/22 12:30) Hives Home Medications: Buspirone HCl [Buspar] 10 mg PO DAILY 01/31/21 [History] Famotidine [Zantac-360 (Famotidine)] 10 mg PO DAILY PRN PRN 01/31/21 [History] Hydroxyzine HCl 25 mg [Atarax 25 mg] 25 mg PO DAILY PRN PRN 01/31/21 [History] Vits W-Ca,Fe,FA(<1Mg) [] 1 each PO DAILY 01/31/21 [History] Polyethylene Glycol 3350 17 gm [Miralax Powder 17GM PACKET] 17 gm PO DAILY PRN 02/11/21 [History] Hx Tetanus, Diphtheria Vaccination/Date Given: No Hx Influenza Vaccination/Date Given: No Hx Pneumococcal Vaccination/Date Given: No Immunizations Up to Date: No Travel Risk - International Travel Have you traveled outside of the country in past 3 weeks: No - Coronavirus Screening Are you exhibiting any of the following symptoms?: No - Vaccine Status Have you recieved a Covid-19 vaccination: No - Review of Systems Constitutional: No Fever, No Chills Eyes: No Symptoms Ears, Nose, & Throat: No Symptoms Respiratory: No Cough, No Dyspnea Cardiac: Chest Pain, No Edema, No Syncope Abdominal/Gastrointestinal: No Abdominal Pain, No Nausea, No Vomiting, No Diarrhea Genitourinary Symptoms: No Dysuria Musculoskeletal: No Back Pain, No Neck Pain Skin: No Rash Neurological: No Dizziness, No Focal Weakness, No Sensory Changes Psychological: No Symptoms Endocrine: No Symptoms All Other Systems: Reviewed and Negative - Past Medical History Pertinent Past Medical History: Yes Neurological History: No Pertinent History ENT History: No Pertinent History Cardiac History: No Pertinent History Respiratory History: No Pertinent History Endocrine Medical History: No Pertinent History, Hypothyroidism Musculoskeletal History: No Pertinent History GI Medical History: No Pertinent History History: Renal Disease Psycho-Social History: Anxiety Female Reproductive Disorders: No Pertinent History Other Medical History: KIDNEY DISEASE. HYPOGLCEMIIA - Past Surgical History Past Surgical History: Yes Neuro Surgical History: No Pertinent History Cardiac: No Pertinent History Respiratory: No Pertinent History Gastrointestinal: No Pertinent History Genitourinary: Other Musculoskeletal: Orthopedic Surgery Female Surgical History: No Pertinent History Other Surgical History: KIDNEY BIOPSY - Social History Smoking Status: Current every day smoker How long have you smoked: 3 Exposure to second hand smoke: No Drug Use: none Patient Lives Alone: No - Female History Hx Last Menstrual Period: 08/22/21 Hx Now: Yes Expected Date of Delivery: 06/28/22 Gestational Age: 21 weeks - Nursing Vital Signs Nursing Vital Signs: Initial Vital Signs Temperature 97.5 F 02/20/22 11:05 Pulse Rate 110 H 02/20/22 11:05 Respiratory Rate 20 02/20/22 11:05 Blood Pressure 125/87 02/20/22 11:05 O2 Sat by Pulse Oximetry 98 02/20/22 11:05 Pain Scale Pain Intensity 4 - Physical Exam General Appearance: no apparent distress, alert Eye Exam: PERRL/EOMI, eyes nml inspection Ears, Nose, Throat Exam: normal ENT inspection, pharynx normal, moist mucous membranes Neck Exam: normal inspection, non-tender, supple, full range of motion Respiratory Exam: normal breath sounds, lungs clear, No respiratory distress Cardiovascular Exam: regular rate/rhythm, normal heart sounds Gastrointestinal/Abdomen Exam: soft, other (Gravid uterus heart tones positive), No tenderness, No mass Pelvic Exam: not done Rectal Exam: deferred Back Exam: normal inspection, normal range of motion, No CVA tenderness, No vertebral tenderness Extremity Exam: normal inspection, normal range of motion, pelvis stable Neurologic Exam: alert, oriented x 3, cooperative, normal mood/affect, nml cerebellar function, sensation nml, No motor deficits Skin Exam: normal color, warm, dry SpO2: 99 - Course Nursing assessment & vital signs reviewed: Yes - Radiology Ultrasound Exam Abdomen Ultrasound: Other (Left upper quadrant ultrasound shows no abnormality of the spleen left kidney etc.) Ordered Tests: Active Orders 24 hr Category Date Time Status Up Ad Emmie TOLERATED Activity 02/20/22 11:[address] in Observation ROUTINE Care 02/20/22 11:00 Active LIVER OR SPLEEN [US] Stat Exams 02/20/22 12:50 Completed AMYLASE Stat Lab 02/20/22 12:55 Completed CBC W DIFF Stat Lab 02/20/22 12:55 Completed CMP Stat Lab 02/20/22 12:55 Completed LIPASE Stat Lab 02/20/22 12:55 Completed Medication Summary Discontinued Medications Generic Name Dose Route Start Last Admin Trade Name Freq PRN Reason Stop Dose Admin Acetaminophen 975 mg 02/20/22 13:34 02/20/22 13:36 Acetaminophen 325 Mg Tablet PO 02/20/22 13:35 975 mg STAT STA Administration Acetaminophen Confirm 02/20/22 13:35 Acetaminophen 325 Mg Tablet Administered 02/20/22 13:36 Dose 975 mg .ROUTE .STK-MED ONE Lab/Rad Data: Laboratory Result Diagrams 02/20/22 12:55 02/20/22 12:55 Laboratory Results 02/20/22 12 Range/Units 12:55 12:55 WBC 10.5 (4.0-10.5) x10^3/uL RBC 3.95 L (4.1-5.4) x10^6/uL Hgb 11.6 L (12.0-16.0) g/dL Hct 34.6 L (35-47) % MCV 87.6 (78-100) fL MCH 29.4 (26-32) pg MCHC 33.5 (32-36) g/dL RDW 12.4 (11.5-14.0) % Plt Count 219 (150-450) x10^3/uL MPV 10.3 (7.5-11.0) fL Gran % 69.8 H (36.0-66.0) % Immature Gran % (Auto) 0.2 (0.00-0.4) % Nucleat RBC Rel Count 0.0 (0.00-0.1) % Eos # (Auto) 0.09 (0-0.5) x10^3/uL Immature Gran # (Auto) 0.02 (0.00-0.03) x10^3u/L Absolute Lymphs (auto) 2.41 (1.0-4.6) x10^3/uL Absolute Monos (auto) 0.61 (0.0-1.3) x10^3/uL Absolute Nucleated RBC 0.00 (0.00-0.01) x10^3u/L Lymphocytes % 23.0 L (24.0-44.0) % Monocytes % 5.8 (0.0-12.0) % Eosinophils % 0.9 (0.00-5.0) % Basophils % 0.3 (0.0-0.4) % Absolute Granulocytes 7.33 H (1.4-6.9) x10^3/uL Basophils # 0.03 (0-0.4) x10^3/uL Sodium 132 L (137-145) mmol/L Potassium 4.1 (3.5-5.1) mmol/L Chloride 103 (98-107) mmol/L Carbon Dioxide 24 (22-30) mmol/L Anion Gap 9.2 (5-15) MEQ/L BUN 5 L (7-17) mg/dL Creatinine 0.42 L (0.52-1.04) mg/dL Estimated GFR > 60.0 ML/MIN Glucose 83 (74-106) mg/dL Calcium 8.5 (8.4-10.2) mg/dL Total Bilirubin 0.50 (0.2-1.3) mg/dL AST 16 (14-36) U/L ALT 11 (0-35) U/L Alkaline Phosphatase 65 (38-126) U/L Serum Total Protein 6.6 (6.3-8.2) g/dL Albumin 3.4 L (3.5-5.0) g/dL Amylase 62 (30-110) U/L Lipase 28 (23-300) U/L - Progress Progress: improved Progress Note: 02/20/22 14:02 After work-up in the ER Dr. Chapin was contacted we discussed the possibility of PE and both of us agreed that without tachycardia at rest or without some level of hypoxia it was extremely unlikely that this was PE. Discussed with : Francine Will see patient in: office (And follow-up as needed) - Departure Departure Disposition: Home Clinical Impression: Left upper quadrant pain, 21 weeks gestation of Condition: Stable Critical Care Time: No Referrals: KATHRYN ARRINGTON PA [Primary Care Provider] - Additional Instructions: KEEP NEXT SCHEDULED APPOINTMENT WITH Daniel AND . GO TO ER FOR C/O ABD PAIN. Forms: OB Outpatient Discharge Inst.
[2022-02-20 14:16] VITALS: BP 99/70; PULSE 78; O2SAT 97
== END 2022-02-20 14:17 | disposition home or self-care (01) ==
LOC: ED 12:15 → EDSTATUS 12:15 → ED 14:17
DX: O09.892 Supervision of other high risk pregnancies, second trimester (principal); Z3A.21 21 weeks gestation of pregnancy; R10.12 Left upper quadrant pain; Z79.899 Other long term (current) drug therapy; Z28.310 Unvaccinated for COVID-19; Z72.0 Tobacco use
CPT/HCPCS: 36415; 76705; 80053; 82150; 83690; 85025; 99283; G0378; A9270-GY

== ENCOUNTER 2022-06-16 09:26 | Inpatient (IN) | payer BC, MEDICAID ==
[~2022-06-16 09:26] MED LIST: PITOCIN 30 UNITS/ LR 500 ML 30 UNITS/500 ML PLAST..BAG IV SCH
[2022-06-16] MEDS ORDERED: Zofran 4 MG/2 ML VIAL IV PRN (20:00)
[2022-06-16 20:46] LABS: Absolute Neutrophil Ct (ANC) 7.96 x10^3/uL (1.4-6.9); BASOPHIL % 0.4 % (0.0-0.4); Basophil (Absolute #) 0.05 x10^3/uL (0-0.4); Eosinophil % 1.6 % (0.00-5.0); Eosinophil (Absolute #) 0.19 x10^3/uL (0-0.5); Hematocrit 35.6 % (35-47); IMMATURE GRAN # 0.05 x10^3u/L (0.00-0.03); IMMATURE GRAN % 0.4 % (0.00-0.4); Lymphocyte (Absolute #) 2.67 x10^3/uL (1.0-4.6); Lymphocytes % 22.7 % (24.0-44.0); Mean Cell Volume 88.8 fL (78-100); Mean Corpuscular Hemoglobin 29.9 pg (26-32); Mean Corpuscular Hgb Concent. 33.7 g/dL (32-36); Mean Platelet Volume 10.4 fL (7.5-11.0); Monocyte (Absolute #) 0.84 x10^3/uL (0.0-1.3); Monocytes % 7.1 % (0.0-12.0); Neutrophil % 67.8 % (36.0-66.0); Platelet Count 302 x10^3/uL (150-450); Red Blood Count 4.01 x10^6/uL (4.1-5.4); Red Cell Distribution Width 13.1 % (11.5-14.0); White Blood Count 11.8 x10^3/uL (4.0-10.5)
[2022-06-16] MEDS: CYTOTEC PO SCH ×2 (21:04→23:00)
[2022-06-16 21:06] LABS: Appearance Clear (Clear); Bacteria None Seen /HPF (None Seen); Bilirubin Negative (Negative); Blood Moderate (Negative); Epithelial Cells None Seen /HPF (None Seen); Glucose, Urine Negative (Negative); Hyaline Casts NONE SEEN /LPF (0-2); Ketones Negative (Negative); Leukocyte Esterase Negative (Negative); Nitrite Negative (Negative); Ph 6.5 (4.6-8.0); Protein,Urine Dip 300 (Negative); RBC 21-50 /HPF (0-5); Urobilinogen 0.2 mg/dL (0.2)
[2022-06-16 21:07] LABS: ADD URINE CULTURE? YES (NO)
[2022-06-16 21:17] LABS: Amphetamine,Urine NEGATIVE (NEGATIVE); Barbiturate,Urine NEGATIVE (NEGATIVE); Benzodiazepine,Urine NEGATIVE (NEGATIVE); Cocaine,Urine NEGATIVE (NEGATIVE); Methadone,Urine NEGATIVE (NEGATIVE); Opiate,Urine NEGATIVE (NEGATIVE); PCP,Urine NEGATIVE (NEGATIVE); THC,Urine NEGATIVE (NEGATIVE)
[2022-06-16] MEDS ORDERED: Ambien 10 MG PO PRN (22:11)
[2022-06-16 22:15] LABS: ABO TYPING A; Antibody Screen NEGATIVE (NEGATIVE); RH TYPING POSITIVE
[2022-06-16] MEDS: STADOL 2 MG IV PRN (23:12)
[2022-06-16] MEDS ORDERED: Lactated Ringers 1,000 ML IV ONE (23:28)
[2022-06-16] MEDS ORDERED: XYLOCAINE 1% HCL 20 ML MDV ONE (23:46)
[2022-06-16] MEDS: Lactated Ringers 1,000 ML IV SCH (23:56)
[2022-06-17] MEDS: CYTOTEC PO SCH ×4 (01:00→20:17)
[2022-06-17] MEDS: STADOL 2 MG IV PRN (03:57)
[2022-06-17] MEDS ORDERED: BRETHINE 1 MG/ML SQ PRN (06:00)
[2022-06-17] MEDS ORDERED: PITOCIN 30 UNITS/ LR 500 ML 30 UNITS/500 ML PLAST..BAG IV SCH ×2 (06:00→13:00)
[2022-06-17] MEDS: Lactated Ringers 1,000 ML IV SCH ×2 (06:57→08:33)
[2022-06-17] MEDS ORDERED: Ephedrine Sulfate 50 MG/ML IV PRN (07:00)
[2022-06-17] MEDS ORDERED: Lactated Ringers 1,000 ML IV ONE (07:00)
[2022-06-17] MEDS ORDERED: FENTANYL 2 MCG-BUPIV 0.125%-NS 250 ML Epidur 250 ML EPIDURAL SCH (07:00)
[2022-06-17] MEDS ORDERED: XYLOCAINE 1% HCL 20 ML MDV IJ PRN (08:00)
[2022-06-17] MEDS ORDERED: Dermoplast Spray TP PRN (10:00)
[2022-06-17] MEDS ORDERED: LANSINOH 40 GM TOP PRN (10:00)
[2022-06-17] MEDS ORDERED: TUCKS TP PRN (10:00)
[2022-06-17] MEDS ORDERED: MOTRIN 400 MG PO PRN (10:00)
[2022-06-17] MEDS ORDERED: CORTISONE 1% CREAM TP PRN (10:00)
[2022-06-17] MEDS ORDERED: AMMONIA AROMATIC IH ONE (10:16)
[2022-06-17] MEDS ORDERED: Miralax Powder 17GM PACKET PO PRN (15:58)
[2022-06-17] MEDS ORDERED: MEDICATION INTERVENTION MC SCH (16:30)
[2022-06-17] MEDS: TYLENOL EXTRA STRENGTH 500 MG PO PRN ×2 (17:09→21:39)
[2022-06-17] MEDS: Docusate Sodium 100 MG PO SCH (21:40)
[2022-06-17] MEDS ORDERED: BUSPAR 5 MG PO SCH (22:00)
[2022-06-17] MEDS ORDERED: THERAGRAN MULTIVITAMIN PO SCH (22:00)
[2022-06-17] MEDS ORDERED: NON-FORMULARY ITEM (Valacyclovir Hcl [Valacyclovir] 500 MG Tablet) PO SCH (22:00)
[2022-06-17] MEDS ORDERED: BUSPIRONE HCL 10 MG PO SCH (22:00)
[2022-06-17] MEDS ORDERED: BABY ASPIRIN 81 MG CHEW PO SCH (22:00)
[2022-06-17] MEDS ORDERED: FAMOTIDINE 10 MG PO SCH (22:00)
[2022-06-17] MEDS ORDERED: BENADRYL 25 MG CAPSULE PO SCH (22:00)
[2022-06-17] MEDS ORDERED: Pepcid 20 MG PO SCH (22:00)
[2022-06-17] MEDS ORDERED: ATARAX 25 MG PO SCH (22:00)
[2022-06-17] MEDS ORDERED: NON-FORMULARY ITEM (Prenatal Vits W-Ca,Fe,Fa(<1mg) [Prenatal] 1 EACH Tablet) PO SCH (22:00)
[2022-06-18 05:10] LABS: Absolute Neutrophil Ct (ANC) 6.28 x10^3/uL (1.4-6.9); BASOPHIL % 0.5 % (0.0-0.4); Basophil (Absolute #) 0.06 x10^3/uL (0-0.4); Eosinophil % 2.8 % (0.00-5.0); Eosinophil (Absolute #) 0.34 x10^3/uL (0-0.5); Hematocrit 33.7 % (35-47); IMMATURE GRAN # 0.04 x10^3u/L (0.00-0.03); IMMATURE GRAN % 0.3 % (0.00-0.4); Lymphocytes % 35.2 % (24.0-44.0); Mean Cell Volume 89.6 fL (78-100); Mean Corpuscular Hemoglobin 29.3 pg (26-32); Mean Corpuscular Hgb Concent. 32.6 g/dL (32-36); Mean Platelet Volume 10.8 fL (7.5-11.0); Monocyte (Absolute #) 1.02 x10^3/uL (0.0-1.3); Monocytes % 8.5 % (0.0-12.0); Neutrophil % 52.7 % (36.0-66.0); Platelet Count 273 x10^3/uL (150-450); Red Blood Count 3.76 x10^6/uL (4.1-5.4); Red Cell Distribution Width 13.2 % (11.5-14.0); White Blood Count 11.9 x10^3/uL (4.0-10.5)
[2022-06-18 08:28] VITALS: BP 124/77
[2022-06-18 09:16] LABS: INFLUENZA A NEGATIVE (NEGATIVE); INFLUENZA B NEGATIVE (NEGATIVE); RESPIRATORY SYNCTIAL VIRUS NEGATIVE (NEGATIVE); SARS-CoV-2 Xpert Express NEGATIVE (NEGATIVE)
[2022-06-18] MEDS ORDERED: Adacel Vial IM ONE (10:00)
[2022-06-18] MEDS ORDERED: FERREX 150 PO SCH (10:00)
--- NOTE | 2022-06-18 10:52 | PCM.NOTE ---
Date and Time: 06/18/22 1050 Subjective Assessment: sp ppd 1 pt resting in bed and doing well without complaints desiring to be discharged home today. pt ambulating and tolerating diet. vss afebrile abd; soft uterus; firm lochia; mild hgb; 11 a/p sp ppd 1 dc home today should fu in office in 3 wks OBJECTIVE DATA Vital Signs: Vital Signs - 24 hr Temp Pulse Resp BP BP Pulse Ox 06/18/22 08:00 98.0 F 99 H 18 124/77 99 06/18/22 02:00 98 F 90 16 122/73 97 06/17/22 20:00 97.8 F 91 H 18 131/74 98 06/17/22 16:00 98.2 F 73 18 113/53 06/17/22 15:00 88 16 113/53 06/17/22 14:00 98.2 F 92 H 18 119/57 100 06/17/22 13:00 99 H 18 132/74 99 06/17/22 12:45 93 H 18 127/72 98 06/17/22 12:30 98 H 18 128/61 98 06/17/22 12:15 98 H 18 123/60 98 06/17/22 12:00 98 H 18 116/63 123/60 99 06/17/22 11:45 85 16 110/55 06/17/22 11:30 73 16 108/58 06/17/22 11:15 88 16 115/66 06/17/22 11:00 90 16 131/78 97 Pain Assessment - Last Documented Pain Intensity [Left Lower] 5 Pain Intensity [Left Lower 7 Posterior] Pain Intensity 2 Pain Scale Used 0-10 Pain Scale Intake and Output: Intake & Output 06/15/22 06/16/22 06/17/22 06/18/22 11:59 11:59 11:59 11:59 Intake Total 1475 2250 Output Total 102 100 Balance 1373 2150 Weight 113.398 kg Lab Results: Lab Results-Last 24 Hours 06/18/22 06/18/22 Range/Units 04:14 08:24 WBC 11.9 H (4.0-10.5) x10^3/uL RBC 3.76 L (4.1-5.4) x10^6/uL Hgb 11.0 L (12.0-16.0) g/dL Hct 33.7 L (35-47) % MCV 89.6 (78-100) fL MCH 29.3 (26-32) pg MCHC 32.6 (32-36) g/dL RDW 13.2 (11.5-14.0) % Plt Count 273 (150-450) x10^3/uL MPV 10.8 (7.5-11.0) fL Gran % 52.7 (36.0-66.0) % Immature Gran % (Auto) 0.3 (0.00-0.4) % Nucleat RBC Rel Count 0.0 (0.00-0.1) % Eos # (Auto) 0.34 (0-0.5) x10^3/uL Immature Gran # (Auto) 0.04 H (0.00-0.03) x10^3u/L Absolute Lymphs (auto) 4.20 (1.0-4.6) x10^3/uL Absolute Monos (auto) 1.02 (0.0-1.3) x10^3/uL Absolute Nucleated RBC 0.00 (0.00-0.01) x10^3u/L Lymphocytes % 35.2 (24.0-44.0) % Monocytes % 8.5 (0.0-12.0) % Eosinophils % 2.8 (0.00-5.0) % Basophils % 0.5 (0.0-0.4) % Absolute Granulocytes 6.28 (1.4-6.9) x10^3/uL Basophils # 0.06 (0-0.4) x10^3/uL Influenza Type A Ag NEGATIVE (NEGATIVE) Influenza Type B Ag NEGATIVE (NEGATIVE) RSV (PCR) NEGATIVE (NEGATIVE) SARS-CoV-2 (PCR) NEGATIVE (NEGATIVE) Assessment/Plan (1) Vaginal delivery Current Visit: No Status: Acute Code(s): O80 - ENCOUNTER FOR FULL-TERM UNCOMPLICATED DELIVERY
--- NOTE | 2022-06-18 10:55 | PCM.DS ---
Discharge Summary Date of Admission: 06/17/22 09:26 Admitting Physician: AYUSH BURDICK DO Consults: Consults on Case 06/17/22 08:00 Notify Anesthesia Provider JEANINEN 06/17/22 17:21 Navigation ONCE Primary Care Provider: KATHRYN ARRINGTON Allergies Allergies codeine Allergy (Verified 06/17/22 20:19) Hives morphine Allergy (Verified 06/17/22 20:18) Hives promethazine HCl [From Phenergan] Allergy (Verified 06/17/22 20:18) Hives these are all childhood allergies, pt does not know the severity of them. Hospital Summary - Hospital Course Hospital Course: pt admitted on june 16 for induction with oral cytotec being 38 wks pregancy and was advised to be induced from mfm secondary to iugr. pt subsequently received pitocin on june 17 and then delivered live baby girl without complication at 1202 pm. during period did very well able to ambulate and tolerate diet and at this time requests to be discharged home at this time. pt was advised to fu in office in 3 wks for care. all questions answered to her satisfaction. - Vitals & Intake/Output Vital Signs: Vital Signs Temperature 98.0 F 06/18/22 08:00 Pulse Rate 99 H 06/18/22 08:00 Respiratory Rate 18 06/18/22 08:00 Blood Pressure 124/77 06/18/22 08:00 O2 Sat by Pulse Oximetry 99 06/18/22 08:00 Intake & Output: Intake & Output 06/15/22 06/16/22 06/17/22 06/18/22 11:59 11:59 11:59 11:59 Intake Total 1475 2250 Output Total 102 100 Balance 1373 2150 Weight 113.398 kg - Lab Result Diagrams: 06/18/22 04:14 Lab Results-Last 24 Hrs: Lab Results-Last 24 Hours 06/18/22 06/18/22 Range/Units 04:14 08:24 WBC 11.9 H (4.0-10.5) x10^3/uL RBC 3.76 L (4.1-5.4) x10^6/uL Hgb 11.0 L (12.0-16.0) g/dL Hct 33.7 L (35-47) % MCV 89.6 (78-100) fL MCH 29.3 (26-32) pg MCHC 32.6 (32-36) g/dL RDW 13.2 (11.5-14.0) % Plt Count 273 (150-450) x10^3/uL MPV 10.8 (7.5-11.0) fL Gran % 52.7 (36.0-66.0) % Immature Gran % (Auto) 0.3 (0.00-0.4) % Nucleat RBC Rel Count 0.0 (0.00-0.1) % Eos # (Auto) 0.34 (0-0.5) x10^3/uL Immature Gran # (Auto) 0.04 H (0.00-0.03) x10^3u/L Absolute Lymphs (auto) 4.20 (1.0-4.6) x10^3/uL Absolute Monos (auto) 1.02 (0.0-1.3) x10^3/uL Absolute Nucleated RBC 0.00 (0.00-0.01) x10^3u/L Lymphocytes % 35.2 (24.0-44.0) % Monocytes % 8.5 (0.0-12.0) % Eosinophils % 2.8 (0.00-5.0) % Basophils % 0.5 (0.0-0.4) % Absolute Granulocytes 6.28 (1.4-6.9) x10^3/uL Basophils # 0.06 (0-0.4) x10^3/uL Influenza Type A Ag NEGATIVE (NEGATIVE) Influenza Type B Ag NEGATIVE (NEGATIVE) RSV (PCR) NEGATIVE (NEGATIVE) SARS-CoV-2 (PCR) NEGATIVE (NEGATIVE) Micro Results-Entire Visit: Microbiology 06/17/22 00:13 Urine Culture - Preliminary Urine, Indwelling Catheter NO GROWTH TO DATE 06/16/22 20:08 Urine Culture - Final Urine, Void <10K NORMAL SKIN JEMMA PROBABLE SKIN CONTAMINANT Final Diagnosis/Problem List - Final Discharge Diagnosis/Problem (1) Vaginal delivery Current Visit: No Status: Acute Code(s): O80 - ENCOUNTER FOR FULL-TERM UNCOMPLICATED DELIVERY (2) growth restriction Current Visit: Yes Status: Acute - Discharge Disposition: Home, Self-Care Condition: Stable Prescriptions: No Action Vits W-Ca,Fe,FA(<1Mg) [] 1 each PO HS Hydroxyzine HCl 25 mg [Atarax 25 mg] 25 mg PO HS Famotidine [Zantac-360 (Famotidine)] 10 mg PO HS Buspirone HCl [Buspar] 10 mg PO HS Polyethylene Glycol 3350 17 gm [Miralax Powder 17GM PACKET] 17 gm PO DAILY PRN PRN Reason: Constipation Aspirin 81 gm Chew [Baby Aspirin 81 mg Chew] 162 mg PO HS Diphenhydramine HCl 25 mg [Benadryl 25 mg Capsule] 50 mg PO HS Valacyclovir HCl [Valacyclovir] 500 mg PO BID Follow up with: KATHRYN ARRINGTON PA [Primary Care Provider] - AYUSH BURDICK DO [ACTIVE STAFF] - 3 weeks (should fu in office in 3 wks)
[2022-06-18] MEDS ORDERED: PROVENTIL 2.5 MG/3 ML NEB IH ONE (11:46)
[2022-06-18] MEDS ORDERED: PROVENTIL 2.5 MG/3 ML NEB IH PRN (11:47)
[2022-06-18 11:53] VITALS: PULSE 101; O2SAT 98
[2022-06-18] MEDS: TYLENOL EXTRA STRENGTH 500 MG PO PRN (12:14)
[2022-06-18] MEDS: Docusate Sodium 100 MG PO SCH (12:39)
[2022-06-18 13:52] LABS: HBsAg Screen Negative (Negative)
== END 2022-06-18 13:20 | disposition home or self-care (01) | DRG 807 ==
LOC: OB 09:26 → OBSVTOIN 06-17 09:26
PROVIDERS: ADMIT Obstetrics & Gynecology; ATTEND Obstetrics & Gynecology
PROC: 10E0XZZ Delivery of Products of Conception, External Approach (ICD-10-PCS; principal; 2022-06-17)
DX: O69.81X0 Labor and delivery complicated by cord around neck, without compression, not applicable or unspecified (principal); Z37.0 Single live birth; Z3A.38 38 weeks gestation of pregnancy; Z20.828 Contact with and (suspected) exposure to other viral communicable diseases
CPT/HCPCS: 0241U; 36415; 59409; 80307; 81001; 85025; 86850; 86900; 86901; 87086; 87340; 94640; 94760; 90471; 90715; G0378; J0595; J2590; J7609; A9270-GY

== ENCOUNTER 2024-06-01 06:13 | Day surgery (SDC) | payer BC ==
[2024-06-01] MEDS ORDERED: TYLENOL EXTRA STRENGTH 500 MG ONE (06:18)
[2024-06-01] MEDS ORDERED: NEURONTIN ONE (06:18)
[2024-06-01] MEDS ORDERED: Decadron 4 MG ONE (06:18)
[2024-06-01] MEDS ORDERED: Transderm Scop 1.5MG Patch ONE (06:18)
[2024-06-01] MEDS ORDERED: celeBREX 100 MG ONE (06:19)
[2024-06-01] MEDS: Transderm Scop 1.5MG Patch TOP PRN (06:22)
[2024-06-01] MEDS: celeBREX 100 MG PO ONE (06:22)
[2024-06-01] MEDS: NEURONTIN PO ONE (06:22)
[2024-06-01] MEDS: TYLENOL EXTRA STRENGTH 500 MG PO ONE (06:22)
[2024-06-01] MEDS: Decadron 4 MG PO ONE (06:23)
[2024-06-01 06:32] LABS: HCG URINE TEST NEGATIVE (NEGATIVE)
[2024-06-01] MEDS ORDERED: Lactated Ringers 1,000 ML IV ONE (06:39)
[2024-06-01] MEDS ORDERED: CEFAZOLIN 2 GM/100 ML NaCl 2 GM/100 ML IVPB IV ONE (06:40)
[2024-06-01] MEDS: Lactated Ringers 1,000 ML IV SCH (06:43)
[2024-06-01] MEDS: CEFAZOLIN 2 GM/100 ML NaCl 2 GM/100 ML IVPB IV SCH (06:43)
[2024-06-01 06:47] VITALS: RESP 16
[2024-06-01 06:52] LABS: Hematocrit 36.9 % (34.1-44.9); Hemoglobin 12.3 g/dL (11.2-15.7); Mean Cell Volume 90.7 fL (79.4-94.8); Mean Corpuscular Hemoglobin 30.2 pg (25.6-32.2); Mean Corpuscular Hgb Concent. 33.3 g/dL (32.2-35.5); Mean Platelet Volume 10.2 fL (9.4-12.3); Platelet Count 263 x10^3/uL (182-369); Red Blood Count 4.07 x10^6/uL (3.93-5.22); Red Cell Distribution Width 12.1 % (11.7-14.4); White Blood Count 9.4 x10^3/uL (3.98-10.04)
[2024-06-01 07:05] LABS: ALBUMIN 3.9 g/dL (3.5-5.0); ANION GAP 13.7 MEQ/L (5-15); BILIRUBIN,TOTAL 0.7 mg/dL (0.2-1.3); Calcium 8.8 mg/dL (8.4-10.2); Creatinine 1 0.69 mg/dL (0.52-1.04); EST GLOMERULAR FILTRATION RATE 120.4 ML/MIN; Total Protein 6.6 g/dL (6.3-8.2)
[2024-06-01] MEDS ORDERED: EXPAREL 133 MG/10 ML VIAL IJ ONE (08:37)
[2024-06-01] MEDS ORDERED: Marcaine Mpf 0.5% Vial 30 Ml ONE (08:37)
[2024-06-01] MEDS ORDERED: Pre-Attached Lta Kit TP ONE (08:38)
[2024-06-01] MEDS ORDERED: SUBLIMAZE 100 MCG/2 ML ONE (08:50)
[2024-06-01] MEDS ORDERED: Versed 2 MG/2 ML Injection ONE (08:50)
[2024-06-01] MEDS ORDERED: Xylocaine-Mpf 2% 5 Ml Vial ONE (08:52)
[2024-06-01] MEDS ORDERED: DEXMEDETOMIDINE 80 MCG/20ML-NS IV ONE (08:52)
[2024-06-01] MEDS ORDERED: propofoL IV ONE (08:58)
[2024-06-01] MEDS ORDERED: ROCURONIUM BROMIDE IV ONE (09:32)
[2024-06-01] MEDS ORDERED: DILAUDID 2 MG INJECTION ONE (11:21)
[2024-06-01] MEDS ORDERED: Ephedrine Sulfate 50 MG/ML ONE (12:33)
[2024-06-01] MEDS ORDERED: Zofran 4 MG/2 ML VIAL ONE (13:03)
[2024-06-01] MEDS ORDERED: BRIDION 200MG/2ML IV ONE (13:04)
--- NOTE | 2024-06-01 13:37 | XRAY ---
Indication: Left ankle hardware removal, fibula osteotomy, talotibial arthrodesis, talofibular arthrodesis, and fibula lengthening. Intraoperative fluoroscopy provided for 7 minutes 18 seconds. 37 digital spot images submitted for interpretation initially demonstrates removal of distal tibia/fibula hardware and orthopedic button. Last images demonstrate new distal fibula lateral fixation plate/9 transverse screws and 3 new talotibial arthrodesis screws. Correlate with intraoperative findings/report.
[2024-06-01 14:36] VITALS: TEMP 97.4
[2024-06-01 14:44] VITALS: BP 127/62; PULSE 94; O2SAT 97
--- NOTE | 2024-06-01 15:02 | XRAY ---
7 minutes 18 seconds of fluoroscopy used in surgery for a left ankle hardware removal, fibula osteotomy, talotibial arthrodesis, talofibular arthrodesis, and fibula lengthening.
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
== END 2024-06-01 14:58 | disposition home or self-care (01) ==
LOC: SDC 06:13
PROVIDERS: ATTEND Podiatrist Foot & Ankle Surgery
DX: S82.852A Displaced trimalleolar fracture of left lower leg, initial encounter for closed fracture (principal); M19.072 Primary osteoarthritis, left ankle and foot; M25.372 Other instability, left ankle; M25.572 Pain in left ankle and joints of left foot; T84.84XA Pain due to internal orthopedic prosthetic devices, implants and grafts, initial encounter; M21.072 Valgus deformity, not elsewhere classified, left ankle
CPT/HCPCS: 20680; 27707; 27784; 27870; 27871; 36415; 73610; 76000; 80053; 81025; 85027; C1713; C1762; J0666; J0690; J1171; J2250; J2405; J2704; J3010; A9270-GY